=== PATIENT | male | born 1985 | race Caucasian/White ===

== ENCOUNTER → 2022-03-09 07:47 | Outpatient (CLI) | payer OTHER, SELFPAY ==
--- NOTE | 2022-03-09 07:54 | US_ITS ---
FINAL REPORT CLINICAL HISTORY: RT LEG SWELLING W/LUMP/MASS FINDINGS: Limited sonographic images of the soft tissues in the posterior right knee were obtained. In the area of interest is a 1.5 x 0.8 cm well-circumscribed hypoechoic nodule, may represent a complex cyst versus neoplasm. IMPRESSION: Hypoechoic nodule in the area of interest as above. Reviewed, Interpreted and Dictated by Will Tripp III, MD Transcribed by Tyesha Coker Authenticated and [facility]
== END ==
PROVIDERS: PCP Nurse Practitioner Family; Visit Provider Nurse Practitioner Family
DX: R22.41 Localized swelling, mass and lump, right lower limb (principal)
CPT/HCPCS: 76882

== ENCOUNTER → 2022-03-23 08:05 | Outpatient (CLI) | payer OTHER, SELFPAY ==
--- NOTE | 2022-03-23 08:14 | MR_ITS ---
FINAL REPORT CLINICAL HISTORY: LOCIALIZED SWELLING MASS AND LUMP IN LOWER LIMB VARICOSE VEIN SURGERY 2-3 YEARS AGO, LUMP MEDIAL UPPER TIB/FIB RIGHT BELOW BEND OF KNEE. FINDINGS: Multiplanar MR imaging of the right lower leg was performed without contrast. Overall exam quality is significantly degraded by magnetic artifact in the superior margin of the field of view and at the level of the distal 1/3 of the tibia. Artifact distorts the imaging field. Allowing for magnetic artifact, no definite marrow edema is seen. No skin marker was placed over the abnormality. There is a small ovoid nodule in the subcutaneous soft tissues at the level of the posterior medial tibial plateau. This nodule is well seen on image 13 of series 19 and image 10 of series 23. A definite fatty hilum is not identified. This focus is indeterminate. IMPRESSION: Suboptimal exam secondary to magnetic artifact. 1.5 x 0.7 cm ovoid subcutaneous nodule posterior to the medial knee. This focus is indeterminate. Reviewed, Interpreted and Dictated by Andres Cisneros MD Transcribed by Socorro Koch Authenticated and [facility]
== END ==
PROVIDERS: PCP Nurse Practitioner Family; Visit Provider Nurse Practitioner Family
DX: R22.41 Localized swelling, mass and lump, right lower limb (principal)
CPT/HCPCS: 73718

== ENCOUNTER → 2022-04-21 07:10 | Outpatient (CLI) | payer OTHER, SELFPAY ==
[2022-04-21 07:15] LABS: Microscopic, Urine URINE MICROSCOPIC (MICROSCOPIC)
[2022-04-21 08:16] LABS: Basophils # 0.1 K/mm3 (0-0.2); Basophils % 1.8 % (0.1-2.0); Eosinophils # 0.3 K/mm3 (0.0-0.4); Eosinophils % 4.4 % (0.1-12.0); Hematocrit 52.4 % (42.0-52.0); Hemoglobin 17.3 g/dL (14.1-18.0); Lymphocytes # 2.4 K/mm3 (0.7-4.5); Lymphocytes % 41.3 % (10-50); Mean Corpuscular Hemoglobin 29.2 pg (27.0-31.2); Mean Corpuscular Volume 88.5 fl (80-94); Mean Platelet Volume 7.4 fl (7.4-10.4); Monocytes # 0.4 K/mm3 (0.1-1.0); Monocytes % 6.6 % (1.7-9.3); Neutrophils # 2.7 K/mm3 (1.8-7.8); Neutrophils % 45.9 % (37.0-80.0); Platelet Count 192 K/mm3 (142-424); Red Blood Count 5.91 M/mm3 (4.60-6.20); Red Cell Distribution Width 13.3 % (11.5-17.5); White Blood Count 5.8 K/mm3 (4.8-10.8)
[2022-04-21 08:17] LABS: Appearance,Urine CLEAR (Clear); Bilirubin,Urine Negative (Negative); Blood, Urine TRACE-I (Negative); Color,Urine YELLOW (Yellow); Glucose,Urine (UA) Negative (Negative); Ketones,Urine Negative (Negative); Leukocyte Esterase,Urine Negative (Negative); Nitrate,Urine POSITIVE (Negative); PH,Urine 5.5 (5.0-8.5); Protein,Urine Negative (Negative); Specific Gravity, Urine 1.025 (1.005-1.030); Urobilinogen,Urine 0.2 EU/dl (0.2)
[2022-04-21 08:20] LABS: Chloride 102 mmol/L (98-107); Potassium 4.4 mmoL/L (3.5-5.1); Sodium 141 mmol/L (136-145)
[2022-04-21 08:23] LABS: Alanine Aminotransferase 73 U/L (12-78); Albumin Level 4.5 g/dl (3.5-5.0); Albumin/Globulin Ratio 1.7 (1.1-1.8); Alkaline Phosphatase 93 U/L (38-126); Anion Gap 13.4 mEq/L (5-15); Aspartate Amino Transferase 74 U/L (17-59); Bilirubin,Total 0.4 mg/dl (0.2-1.3); Blood Urea Nitrogen 27 mg/dl (9-20); Carbon Dioxide 30 mmol/L (22.0-30.0); Estimated Glomerular Filt Rate 69 ml/min (>60); GFR (African American) 83 ML/MIN (>60); Globulin 2.7 g/dL (1.3-3.2); Total Protein,Serum 7.2 g/dl (6.3-8.2)
[2022-04-21 08:24] LABS: Calcium 9.7 mg/dl (8.4-10.2); Glucose 86 mg/dl (74-100)
[2022-04-21 08:40] LABS: Squamous Epithelial Cell,Urine Occasional #/hpf (0-5)
== END ==
PROVIDERS: PCP Nurse Practitioner Family; Visit Provider Orthopaedic Surgery
DX: Z01.818 Encounter for other preprocedural examination (principal); M79.89 Other specified soft tissue disorders
CPT/HCPCS: 36415; 80053; 81001; 85025

== ENCOUNTER 2022-04-27 09:26 | Day surgery (SDC) | payer OTHER, SELFPAY ==
[2022-04-27 10:21] VITALS: BP 121/47; PULSE 74; RESP 18; TEMP 36.2; O2SAT 100; BMI 27.9
--- NOTE | 2022-04-27 12:19 | EXP.ANES.CKL ---
[facility] Disclaimer: The information contained in this section may have been updated after the patient was seen, as this information can be updated by other users. Medical History Allergies Anxiety Bronchitis DVT (deep venous thrombosis) Hyperlipidemia Strep throat Varicose veins of both lower extremities Surgical History (Updated 04/27/22 @ 10:18 by Pepper Mclain RN) Hx of varicose vein stripping Family History Other Cancer Social History Smoking Status: Former smoker alcohol intake: current substance use type: denies use current occupational status: unemployed Travel in the last 8 weeks: None [facility] Anesthesia Checklist Patient Identification Patient Identification: Arm Band and Verbal (Name & ) Structural Data Admitted From: Home Planned Operative Procedure/s: Right Knee Mass Excision Consent for Planned Operative Procedure(s) Verified: Yes Verified Documents: Surgical Consent NPO Status Verified Time NPO: 00:00 Additional verifications Anesthesia Reactions: No Hx Blood Transfusions: No Blood Transfusion Reaction: No Airway Assessment Dentition: Good Dentition Neurological Assessment Level of Consciousness: Awake, Alert and Appropriate Anesthesia Plan Anesthesia Risk discussed: Yes ASA Class: II Anesthesia Type: MAC
--- NOTE | 2022-04-27 12:38 | EXP.OP.NOTE ---
Date of procedure: 04/27/22 Pre-op Diagnosis:: Soft tissue mass right knee Post-op Diagnosis:: Same Procedure performed:: Excision soft tissue mass right knee Surgeon:: Rex Shelton DO Deputy Register Of Deeds(s):: Juliette RIZO RESOURCE TECHNICIAN:: Ankur Morrison Anesthesia: MAC and local Estimated blood loss (mL): 0 Operative findings:: Well-circumscribed soft tissue mass posterior medial aspect of right knee Operative note:: Patient was identified preoperatively. Right knee marked yes my initials. Transferred operative suite. Placed upon operating bed. Sedation was given. Right lower extremity prepped draped normal sterile fashion. Once prepped and draped final operative timeout performed to identify proper patient procedure and extremity. Everyone involved in the case agreed. No counter indications to beginning. Did receive preoperative antibiotics. Marking pen was used to make plan incision over the soft tissue mass that was palpable at the posterior medial aspect of the right knee. Skin F was used incise the skin. Careful dissection taken down with scissors to identify us well-circumscribed soft tissue mass posterior aspect of the knee. Mass was excised in its entirety and passed off for pathology. I was nonpulsatile hardened mass. Irrigation of wound was performed skin was closed with nylon stitch sterile dressing placed patient taken from sedation taken recovery stable condition Tourniquet time (min): 17 Condition: stable Disposition: PACU Complications:: None apparent
[2022-04-27 12:42] VITALS: BP 111/57; PULSE 68; RESP 19; TEMP 36.6; O2SAT 94
[2022-04-27 12:52] VITALS: BP 112/77; PULSE 73; RESP 16; O2SAT 96
[2022-04-27 13:02] VITALS: BP 134/76; PULSE 70; RESP 18; O2SAT 96
[2022-04-27 13:12] VITALS: BP 128/99; PULSE 68; RESP 16; TEMP 36.3; O2SAT 97
== END 2022-04-27 13:15 | disposition home or self-care (01) ==
PROVIDERS: PCP Nurse Practitioner Family; Visit Provider Orthopaedic Surgery
PROC: (CPT 27327; principal; 2022-04-27 11:00)
DX: D36.7 Benign neoplasm of other specified sites (principal); M79.89 Other specified soft tissue disorders
CPT/HCPCS: 27327; 96374

== ENCOUNTER 2024-11-04 07:14 | Outpatient (CLI) | payer BC, SELFPAY ==
--- OUTSIDE RECORDS SUMMARY | 2024-09-19 20:00 | XMS_ITS | Encounter Summary ---
Author Name [facility] Address [address] [place] [address] Support Name Relationship Address Phone UNKNOWN Next of Kin Unknown Unavailable UNKNOWN Emergency Contact Unknown Unavailabl e Selected Encounter This section includes the information on record at [place] for the Encounter. Date/Time Encounter Type Encounter Description Reason Pro vider Source September 20, 2024 12:00 AM Outpatient Encounter EVENT (HISTORICAL) [facility] Encounter Template Text not used by [place] Social History: Smoking Status (Most current) and Tobacco Use (All prior to encounter date) This section includes the most current, and the historical, smoking and tobacco- related health factors from the [place] facility where the Encounter took place. Current Smoking Status This section includes the most current smoking, or tobacco-related health factor, from the [place] facility where the Encounter took place. Date/Time Current Smoking Status Comment Alexus cagle Jul 08, 2011 03:00 PM V9 CURRENT TOBACCO USER [facility] Tobacco Use History This section includes a history of the smoking, or tobacco-related health factors, that were collected on or before the date of the Encounter. The data comes from the [place] facility where the Encounter took place. Date/Time Smoking Status/Tobacco Use Comment Neil smith Jul 08, 2011 03:00 PM V9 TOBACCO OFFERED [facility]
--- OUTSIDE RECORDS SUMMARY | 2024-09-20 11:45 | XMS_ITS | Encounter Summary ---
Author Name [facility] Address [address] [place] [address] Support Name Relationship Address Phone UNKNOWN Next of Kin Unknown Unavailable UNKNOWN Emergency Contact Unknown Unavailabl e Selected Encounter This section includes the information on record at [place] for the Encounter. Date/Time Encounter Type Encounter Description Reason Pro vider Source September 20, 2024 03:45 PM Outpatient Encounter TELEPHONE/MEDICINE [facility] Encounter Template Text not used by [place] Social History: Smoking Status (Most current) and Tobacco Use (All prior to encounter date) This section includes the most current, and the historical, smoking and tobacco- related health factors from the [place] facility where the Encounter took place. Current Smoking Status This section includes the most current smoking, or tobacco-related health factor, from the [place] facility where the Encounter took place. Date/Time Current Smoking Status Comment Alexus cagle Jul 08, 2011 03:00 PM V9 CURRENT TOBACCO USER [facility] Tobacco Use History This section includes a history of the smoking, or tobacco-related health factors, that were collected on or before the date of the Encounter. The data comes from the [place] facility where the Encounter took place. Date/Time Smoking Status/Tobacco Use Comment Neil smith Jul 08, 2011 03:00 PM V9 TOBACCO OFFERED [facility] Encounter Notes: All associated encounter notes This section contains the clinical notes associated to the Encounter. Date/Time Encounter Note(s) Provider Source September 20, 2024 03:45 PM ADMINISTRATIVE NOT E: LOCAL TITLE: V9 [facility] ADMINISTRATIVE NOTE STANDARD TITLE: ADMINISTRATIVE NOTE DATE OF NOTE: SEPTEMBER 20, 2024@15:45 ENTRY DATE: SEPTEMBER 20, 2024@15:45:44 AUTHOR: MARIA GUADALUPE NOVA EXP COSIGNER: URGENCY: STATUS: COMPLETED Toxic Exposure Screening: Attempts to contact /caregiver to perform SPENCER: Contact type: Telephone-left message to call back /gogo/ MARIA GUADALUPE NOVA Primary Care Provider Signed: 09/20/2024 15:46 MARIA GUADALUPE NOVA-[facility]
--- OUTSIDE RECORDS SUMMARY | 2024-11-04 07:16 | XMS_ITS | Continuity of Care Document ---
Author Name [facility] Organization [facility] Care Team Providers Care Accounts Payable Payroll Coordinator Name Role Phone [facility] Unavailable Unavailable Problems Combined list of problems from Department of Defense and Veterans Affairs facilities. It does not include entries that were removed or entered in error. Problem Status Onset Date Problem Type Date of Resolution Comments Source Ankle Injury Active Condition Jul 08, 2011 Entered By: GEREMIAS PLUNKETT Comment: Right; occasionally bothersome; sprain/roll [facility] Chronic Back Pain Active Condition 2011 Entered By: GEREMIAS PLUNKETT Comment: Chronic lower back pain; onset . Constant painFeb 2011 Entered By: GEREMIAS PLUNKETT Comment: Nonradicular painFeb 2011 Entered By: GEREMIAS PLUNKETT Comment: Lumbar MRI 04/23 - minimal spondylotic changes [facility] Family History Active Condition Jun 162011 Entered By: GEREMIAS PLUNKETT Comment: Unremarkable [facility] Health Maintenance Active Condition Jul 11, 2011 Entered By: GEREMIAS PLUNKETT Comment: TSH 1.84 2011 Entered By: GEREMIAS PLUNKETT Comment: Hep C neg 06/26 [facility] Personal History of return from Deployment Active Condition Jul 08, 2011 Entered By: GEREMIAS PLUNKETT Comment: [place] Aug to Mar 2008; [place] Apr 22 to Jun 2009Feb 2011 Entered By: GEREMIAS PLUNKETT Comment: Marine; anti-tank [facility] Posttraumatic Stress Disorder Active Condition Jul 08, 2011 Entered By: GEREMIAS PLUNKETT Comment: 30% Service Connection [facility] Social History Active Condition Jun 162011 Entered By: GEREMIAS PLUNKETT Comment: , one childb 2011 Entered By: GEREMIAS PLUNKETT Comment: Works for [employer]; wishes to work for [employer]Feb 2011 Entered By: GEREMIAS PLUNKETT Comment: Exercise - ellipiticle [facility] Surgical History Active Condition Jul 08, 2011 Entered By: GEREMIAS PLUNKETT Comment: None [facility] Tinnitus Active Condition Jul 08 Entered By: GEREMIAS PLUNKETT Comment: High frequency hearing loss noted [facility] CORNEAL FOREIGN BODY Inactive Condition DoD visit for: ears / hearing exam Active Condition [facility] VITAMIN D DEFICIENCY Active Condition [facility] LUMBAGO Active Condition [facility] Other Physical Therapy Active Condition DoD TONSILLITIS Inactive Condition DoD lower back pain Active Condition [facility] PHARYNGITIS Inactive Condition resolving DoD visit for: services physical Active Condition [facility] Allergies, Adverse Reactions, Alerts Combined list of allergies from Department of Defense and Veterans Affairs facilities. It does not include entries that were removed or entered in error. Substance Category Reaction Severity Reaction type Status Date Reported Comments Source NO OUTPUT FOR NCID [id number] Drug allergy (disorder) active 8 [facility] Immunizations Combined list of available immunizations from the Department of Defense and Veterans Affairs facilities. Immunization Series Date Given Administered By Site Reaction Lot Number CVX Code Drug Retail Parts Pro Status Comments Source influenza virus vaccine, split virus (incl. purified surface antigen)-reti red CODE 0 2009 [id number] Plex[employer]. (MED) complet ed influenza virus vaccine, split virus (incl. purified surface antigen)- retired CODE DoD Novel influenza-H1N 1-09, injectable 0 2008 UNK 127 (AG) complet ed Novel influenza -I2C1-47, injectabl e DoD anthrax vaccine 5 2008 UNK 24 [facility] (MIP) complet ed anthrax vaccine DoD influenza virus vaccine, live, attenuated, for intranasal use 0 2008 UNK 111 Unknown (UNK) comple t ed influenza virus vaccine, live, attenuate d, for intranasa l use DoD typhoid Vi capsular polysaccharid e vaccine 2 2008 UNK 101 Keke (EDISON) complet ed typhoid Vi capsular polysacch aride vaccine [facility] influenza virus vaccine, live, attenuated, for intranasal use 0 2007 UNK 111 Unknown (UNK) comple t ed influenza virus vaccine, live, attenuate d, for intranasa l use DoD anthrax vaccine 4 2007 UNK 24 [facility]gent [facility] ([facility]) complet ed anthrax vaccine DoD vaccinia (smallpox) vaccine 0 2007 [id number] 75 (CLAIRE) complet ed vaccinia (smallpox ) vaccine DoD anthrax vaccine 3 2007 UNK 24 [facility] ([facility]) complet ed anthrax vaccine DoD anthrax vaccine 2 2007 UNK 24 [facility] ([facility]) complet ed anthrax vaccine DoD anthrax vaccine 1 2007 UNK 24 [facility] ([facility]) complet ed anthrax vaccine DoD influenza virus vaccine, live, attenuated, for intranasal use 0 2006 UNK 111 [employer] (MED) complet ed influenza virus vaccine, live, attenuate d, for intranasa l use DoD hepatitis A and hepatitis B vaccine 3 2006 UNK 104 Unknown (UNK) comple t ed hepatitis A and hepatitis B vaccine [facility] typhoid Vi capsular polysaccharid e vaccine 1 2006 UNK 101 [employer] ([facility]) complet ed typhoid Vi capsular polysacch aride vaccine [facility] poliovirus vaccine, inactivated 0 2006 UNK 10 [employer] (MED) complet ed polioviru s vaccine, inactivat ed DoD yellow fever vaccine 0 2006 UNK 37 [facility] ([facility]) complet ed yellow fever vaccine DoD hepatitis A and hepatitis B vaccine 2 2006 UNK 104 Unknown (UNK) comple t ed hepatitis A and hepatitis B vaccine [facility] measles, mumps and rubella virus vaccine 1 2006 [id number] Sanofi Pasteur ([facility]) complet ed measles, mumps and rubella virus vaccine DoD hepatitis A and hepatitis B vaccine 1 2006 [id number] 104 Other (OTH) complet ed hepatitis A and hepatitis B vaccine DoD tetanus and diphtheria toxoids, adsorbed, preservative free, for adult use (2 Lf of tetanus toxoid and 2 Lf of diphtheria toxoid) 1 2006 [id number] Sanofi Pasteur ([facility]) complet ed tetanus and diphtheri a toxoids, adsorbed, preservat daniel free, for adult use (2 Lf of tetanus toxoid and 2 Lf of diphtheri a toxoid) DoD meningococcal polysaccharid e vaccine (MPSV4) 1 2006 [id number] Other (OTH) complet ed meningoco ccal polysacch aride vaccine (MPSV4) [facility] influenza virus vaccine, unspecified formulation 0 2006 [id number] 88 Other (OTH) complet ed influenza virus vaccine, unspecifi ed formulati on DoD Encounters Combined list of: 1) Encounters from Department of Veterans Affairs facilities going backup to the last 18 months, not all VA inpatient encounters are included; 2) Encounters from the Department of Defense facilities going backup to 280 months. Location Location Details Encounter Type Encounter Number Reason For Visit Attending Provider ADM Date DC Date Status Disposition Source [facility] [id number] VERONICA CHAUDHARY 06/07 Released w/o Limitations [facility] Will bravo([facility]) [facility] OUTPATIENT [id number] sore throat [facility] C 07/17 Released with Work/Duty Limitations [facility] Will bravo[facility]) [facility] [id number] f/u sore throat [facility] C 07/20 Released w/o Limitations [facility] Will bravo([facility]) [facility](Ph ysical Therapy Clinic) OUTPATIENT [id number] lumbago , chronic MARTHA DIAZ 12/08 Released w/o Limitations [facility]( Physica l Therapy Clinic) [facility](Ph [facility]sical Therapy Clinic) OUTPATIENT [id number] MARTHA DIAZ 12/10 Released w/o Limitations [facility]( Physica l Therapy [facility]) [facility](Sp med H1) OUTPATIENT [id number] lumbago /initia l CRUZ Black 12/18 Released w/o Limitations [facility]( Spmed H1) [facility](Sp med H1) OUTPATIENT [id number] rehab LEDA BORJA 12/21 Released w/o Limitations [facility]( Spmed H1) [facility](Sp med H1) OUTPATIENT [id number] rehab LEDA BORJA P 12/23 Released w/o Limitations [facility]( Spmed H1) [facility](Sp med H1) OUTPATIENT [id number] rehab LEDA BORJA P 12/25 Released w/o Limitations [facility]( Spmed H1) [facility](Sp med H1) OUTPATIENT [id number] rehab LEDA BORJA P 12/28 Released w/o Limitations [facility]( Spmed H1) [facility]( med H1) OUTPATIENT [id number] rehab LEDA BORJA P 12/30 Released w/o Limitations [facility]( Spmed H1) [facility](Sp med H1) OUTPATIENT [id number] rehab LEDA BORJA P 01/01 Released w/o Limitations [facility]( Spmed H1) [facility](Sp med H1) OUTPATIENT [id number] tx LEDA BORJA P 01/04 Released w/o Limitations [facility]( Spmed H1) [facility](Sp med H1) OUTPATIENT [id number] trLEDA Leyva P 01/05 Released w/o Limitations [facility]( Spmed H1) [facility](Sp med H1) OUTPATIENT [id number] francescot LEDA BORJA P 01/08 Released w/o Limitations [facility]( Spmed H1) [facility](Sp med H1) OUTPATIENT [id number] LEDA Boogie P 01/28 Released w/o Limitations [facility]( Spmed H1) [facility](Sp med H1) OUTPATIENT [id number] LEDA Boogie P 02/01 Released w/o Limitations [facility]( Spmed H1) [facility](Sp med H1) OUTPATIENT [id number] [address] [facility] 02/05 Released w/o Limitations [facility]( Spmed H1) [facility](Sp med H1) OUTPATIENT [id number] LEDA Boogie P 02/08 Released w/o Limitations [facility]( Spmed H1) [facility](Sp med H1) OUTPATIENT [id number] LEDA Boogie P 02/10 Released w/o Limitations [facility]( Spmed H1) [facility](Sp med H1) OUTPATIENT [id number] rehab MYRA MARCANO 02/26 Released w/o Limitations [facility]( Spmed H1) [facility](Sp med H1) OUTPATIENT [id number] LEDA Boogie P 03/01 Released w/o Limitations [facility]( Spmed H1) [facility](Sp med H1) OUTPATIENT [id number] LEDA Boogie P 03/02 Released w/o Limitations [facility]( Spmed H1) [facility](Sp med H1) OUTPATIENT [id number] LEDA Boogie P 03/03 Released w/o Limitations [facility]( Spmed H1) [facility](Sp med H1) OUTPATIENT [id number] LEDA Boogie P 03/04 Released w/o Limitations [facility]( Spmed H1) [facility](Op tometry [facility] [address]) OUTPATIENT [id number] BOO Polanco 03/04 Released w/o Limitations [facility]( Optomet ry [facility] [address]) [facility](Sp med H1) OUTPATIENT [id number] LEDA Boogie 03/05 Released w/o Limitations [facility]( Spmed H1) [facility](Sp med H1) OUTPATIENT [id number] follow up CRUZ ACOSTA 03/12 Released w/o Limitations [facility]( Spmed H1) [facility](He aring Conserv-B 65) OUTPATIENT [id number] LANG ALTAMIRANO 03/15 Released w/o Limitations [facility]( Hearing Conserv -B65) [facility](Op hthalmolo gy Clinic) OUTPATIENT [id number] r/o conjunc tivitis CHOLO CAZARES V 03/22 Released w/o Limitations [facility]( Ophthal mology Clinic) [facility](Op hthalmolo gy Clinic) OUTPATIENT [id number] fb right eye unable to remove in ed CHOLO CAZARES V 03/23 Released w/o Limitations [facility]( Ophthal mology Clinic) [facility](Sp med H1) OUTPATIENT [id number] FOLLOW UP CRUZ ACOSTA 03/31 Released w/o Limitations [facility]( Spmed H1) [facility] Outpatient Encounter [id number] 09/20 [place] [facility] Outpatient Encounter [id number] 09/20 [place] [facility] Procedures Combined list of: 1) Procedures from Department of Veterans Affairs facilities going back up to thelast 18 months, not all VA non-surgical procedures are included; 2) All procedures from the Department of Defense facilities. Procedure Procedure Type Code Date Perfomer Comments Sourc e Ophthalmological Prior Patient Start [facility] Ophthalmological Prior Patient Start [facility] [id number] 03/23/20 10 CHOLO CAZARES V DoD Removal Of A Corneal Foreign Body Removal Of A Corneal Foreign Body 90095 03/22/20 10 VO, CHOLO Leo [facility] Ophthalmological New Patient Start Comprehensive Care Ophthalmological New Patient Start Comprehensive Care 74077 03/22/20 10 VO, CHOLO V [facility] Threshold Audiogram (Pure Tone) Threshold Audiogram (Pure Tone) 65848 03/15/20 10 LANG ALTAMIRANO Tonometry Tonometry 09835 03/04/20 10 BOO CROW Screening Test Of Visual Acuity, Quantitative, Bilateral Screening Test Of Visual Acuity, Quantitative, Bilateral [id number] 03/04/20 10 BOO CROW PT A e ment Kinetic Training PT Assessment Kinetic Training 58746 02/27/20 10 KIMBERLYN VEE Physical Medicine Physical Therapy Re-Evaluation Physical Medicine Physical Therapy Re-Evaluation 74742 02/27/20 10 KIMBERLYN VEE Phys Therapy Education Self Care Training - Per 15 Minutes Phys Therapy Education Self Care Training - Per 15 Minutes 78569 12/11/19 10 MARTHA DIAZ Physical Therapy: ___ Se ion Segments, 15 Minutes Each Physical Therapy: ___ Session Segments, 15 Minutes Each 83791 12/11/19 10 MARTHA DIAZ Physical Therapy: ___ Se ion Segments, 15 Minutes Each Physical Therapy: ___ Session Segments, 15 Minutes Each 03095 12/09/19 10 MARTHA DIAZ Phys Therapy Education Self Care Training - Per 15 Minutes Phys Therapy Education Self Care Training - Per 15 Minutes 40128 12/09/19 10 MARTHA DIAZ Screening Test Of Visual Acuity, Quantitative, Bilateral Screening Test Of Visual Acuity, Quantitative, Bilateral 83427 06/07/19 07 VERONICA CHAUDHARY SCREENING TEST, PURE TONE, AIR ONLY 06/07/19 07 [facility] SCREENING TEST OF VISUAL ACUITY, QUANTITATIVE, BILATERAL 06/07/19 07 [facility] OPHTHALMOLOGICAL SERVICES: MEDICAL EXAMINATION AND EVALUATION, WITH INITIATION OR CONTINUATION OF DIAGNOSTIC AND TREATMENT PROGRAM; COMPREHENSIVE, ESTABLISHED PATIENT, 1 OR MORE VISITS 03/23/20 10 DoD REMOVAL OF FOREIGN BODY, EXTERNAL EYE; CORNEAL, WITHOUT SLIT LAMP 03/22/20 10 [facility] SCREENING TEST OF VISUAL ACUITY, QUANTITATIVE, BILATERAL 03/21/20 10 [facility] PURE TONE AUDIOMETRY (THRESHOLD); AIR ONLY 03/15/20 10 [facility] SERIAL TONOMETRY (SEP PROC) WITH MULT BEN OF INTRAOCULAR PRESSURE OVER EXTENDED TIME PERIOD W/ INTERP & REPORT, SAME DAY (EG, DIURNAL CURVE OR MEDICAL TX OF ACUTE ELEVATION OF INTRAOCULAR PRESSURE) 03/04/20 10 [facility] THERAPEUTIC ACTIVITIES, DIRECT (ONE-ON-ONE) PATIENT CONTACT (USE OF DYNAMIC ACTIVITIES TO IMPROVE FUNCTIONAL PERFORMANCE), EACH 15 MINUTES 02/27/20 10 [facility] SELF-CARE/HOME MANAGMENT TRAIN (EG,ACT OF DAILY LIVING (ADL) &COMPENSAT TRAIN,MEAL PREPARATION,SAFETY PROCS,AND INSTRUCT IN USE OF ASST TECHNOLOGY DEV/ADPT EQUIP) DIR ONE-ON-ONE CONT,EA 15 MINUTES 12/11/19 10 [facility] SELF-CARE/HOME MANAGMENT TRAIN (EG,ACT OF DAILY LIVING (ADL) &COMPENSAT TRAIN,MEAL PREPARATION,SAFETY PROCS,AND INSTRUCT IN USE OF ASST TECHNOLOGY DEV/ADPT EQUIP) DIR ONE-ON-ONE CONT,EA 15 MINUTES 12/09/19 10 [facility] INJECTION, DEXAMETHASONE ACETATE, 1 MG 09/16/19 10 [facility] PURE TONE AUDIOMETRY (THRESHOLD); AIR ONLY 06/25/19 08 [facility] Social History Combined list of available smoking, tobacco, and other social history from Department of Defense and Veterans Affairs facilities. Social History Type Response Date Comment Sour e Tobacco smoking status AKIS V9 [facility] of tobacco use V9 TOBACCO OFFERED 07/08/2011 [facility] SARAH This section is an empty social history section. [facility]
--- NOTE | 2024-11-04 07:17 | US_ITS ---
FINAL REPORT TECHNIQUE: Multiple transverse and longitudinal images CLINICAL HISTORY: ELEVATED LIVER ENZYMES COMPARISON: None FINDINGS: The gallbladder shows no wall thickening, distention or stone disease. There are tiny cholesterol polyps within the gallbladder, 4 mm or less in size. No biliary ductal dilatation is appreciated. No fluid collections are seen. Limited portions of the right liver are unremarkable. Limited portions of the right kidney are unremarkable. IMPRESSION: 1. Tiny cholesterol polyps within the gallbladder, 4 mm or less in size, without evidence of cholelithiasis, distention, or stone disease. 2. No evidence of biliary obstruction Reviewed, Interpreted and Dictated by Vic Dixon MD Transcribed by Josefina Glez Authenticated and [facility]
--- OUTSIDE RECORDS SUMMARY | 2024-11-04 07:17 | XMS_ITS | Clinical Summary ---
Author Organization [facility] Address [address] [place] [phone] Phone Care Team Providers Care Merchandise For Resale Purchasing Agent Name Role Phone Unavailable Primary Care Provider Unavailabl e Allergies No known active allergies Medications fexofenadine-pse udoephedrine (JASMYN-D 24) 180-240 mg Oral Tablet Sustained Release 24 hr Take 1 Tab by mouth daily. Active cyclobenzaprine (FLEXERIL) 10 mg Oral TabletIndication s:Lumbosacral strain, initial encounter Take 1 Tab by mouth nightly as needed for Muscle spasms. 10 Tab 8 Active rivaroxaban (XARELTO) 15 mg Oral Tablet Take 1 Tab by mouth 2 times daily. 42 Tab 9 Active rivaroxaban (XARELTO) 20 mg Oral Tablet Take 1 Tab by mouth daily. 30 Tab 5 9 Active FLUoxetine (PROZAC) 20 mg Oral CapsuleIndicatio ns:Generalized anxiety disorder Take 1 Cap by mouth daily. 30 Cap 2 9 Active Varenicline (CHANTIX STARTING MONTH BOX) 0.5 mg (11)- 1 mg (42) Oral Tablets, Dose PackIndications: Tobacco dependence take as directed 42 Tab 9 Active baclofen (LIORESAL) 10 mg Oral TabletIndication s:Lumbosacral strain, initial encounter Take 1 Tab by mouth 2 times daily. 60 Tab 0 Active predniSONE (DELTASONE) 20 mg Oral TabletIndication s:Pharyngitis, unspecified etiology 2 po q day x 3 days, then 1 po q day x 4 days 10 Tab Active Active Problems Problem Noted Date Diagnosed Date Varicose veins of leg with pain, bilateral 02/26 Deep vein thrombosis (DVT) o f femoral vein of right lower extremity 11/02/2018 Cigarette smoker 09/13/2018 Varicose veins of both lower extremities 019 Immunizations Immunization Administration Dates Next Due Tdap 11/25/2016 Family History Medical History Relation Name Comments Lung Cancer Paternal Grandfather Heart Attack Paternal Grandmother Relation Name Status Comments Brother Alive Father Alive Maternal Grandfather Alive Maternal Grandmother Alive Mother Alive Paternal Grandfather Paternal Grandmother Sister 1 Alive Sister 2 Alive Social History Tobacco Use Types Packs/Day Years Used Date Smoking Tobacco: Former Cigarettes 1 24.5 S tarted: 05/15/2000 Smokeless Tobacco: Never Tobacco Cessation:Ready to Q uit: Yes Alcohol Use Standard Drinks/Week Comments Yes 0 (1 standard drink = 0.6 oz pur e alcohol) 2/wk PHQ-2 Answer Date Recorded PHQ-2 Total Score 0 05/29/2020 Sexually Active Control Partners Comments Yes Female Sex and Gender Information Value Date Recorded Sex Assigned at Not on file Legal Sex Male 2:47 PM EDT Gender Identity Not on file Sexual Orientation Not on file 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 Not on file Not on file Not on file Obstetrics History Last Filed Vital Signs Vital Sign Reading Time Taken Comments Blood Pressure 126/74 01/28/2021 9:55 AM EDT Pulse 71 01/28/2021 9:55 AM EDT Temperature 36.8 C (98.2 F) 01/28/2021 9:55 AM EDT Respiratory Rate - - Oxygen Saturation 96% 05/29/2020 1:01 PM EST Inhaled Oxygen Concentration - - Weight 89.4 kg (197 lb) 01/28/2021 9:55 AM EDT Height 180.3 cm (5' 11 ) 01/28/2021 9:55 AM EDT Body Mass Index 27.48 01/28/2021 9:55 AM EDT Plan of Treatment Health Maintenance Due Date Last Done Comments Annual Wellness Exam 05/29/2021 05/29/2020 COVID-19 Vaccine ( season) 2024 Influenza Vaccine (Season Ended) 2025 03/12/2010, 02/11/2009, 04/07/2008, Additional history exists DTaP/TDaP/Td (3 - Td or Tdap) 11/25/2026 11/25/2016, 06/07/2006, 10/17/2000 Hepatitis B Vaccine Completed 02/26/2007, 08/21/2006, 06/23/2006, Additional history exists Meningococcal B Vaccine Aged Out No l onger eligible based on patient's age to complete this topic Pneumococcal Vaccine 0-49 Aged Out No longer eligible based on patient's age to complete this topic Goals Goal Patient Goal Type Associated Problems Recent Progress Patient-Stated? Author Maintain a healthy diet, exercise regularly and maintain an ideal body weight General No Doreen Chirinos RMA Stay Tobacco Free Lifestyle No Ariane Willett APRN Insurance O
== END 2024-11-04 23:59 | disposition home or self-care (01) ==
LOC: RAD 07:15
PROVIDERS: PCP Nurse Practitioner Family; Visit Provider Nurse Practitioner Family
DX: K82.4 Cholesterolosis of gallbladder (principal)
CPT/HCPCS: 76705